=== PATIENT | female | born 1975 | race Caucasian/White ===

== ENCOUNTER 2017-10-12 18:29 | Emergency (ER) | payer SELFPAY ==
[2017-10-12] MEDS ORDERED: Ondansetron 4 MG/2 ML SDV IVPUSH ONE (18:58)
[2017-10-12] MEDS ORDERED: Sodium Chloride 0.9% 1,000 ML IV ONE (18:58)
[2017-10-12] MEDS ORDERED: Vancomycin 1 GM SDV ONE ×3 (19:40→22:20)
[2017-10-12] MEDS ORDERED: Levofloxacin/Dextrose 5%-Water 150 ML IV ONE (20:14)
[2017-10-12] MEDS ORDERED: Ketorolac 30 MG/ML SDV ONE ×2 (20:28→22:20)
[2017-10-12] MEDS ORDERED: Sodium Chloride 0.9% with KCl 1,000 ML ONE (20:52)
[2017-10-12] MEDS ORDERED: methylPREDNISolone Sodium Succinate 125 MG/2 ML SDV ONE (21:17)
[2017-10-12] MEDS ORDERED: LEVOFLOXACIN IV ONE (22:20)
[2017-10-12] MEDS ORDERED: Acetaminophen 650 MG Supp ONE (22:20)
[2017-10-12] MEDS ORDERED: KCL ONE (22:20)
[2017-10-12] MEDS ORDERED: DEXTROSE IV ONE (22:20)
[2017-10-12] MEDS ORDERED: SODIUM CHLORIDE ONE (22:20)
[2017-10-12] MEDS ORDERED: WATER IV ONE (22:20)
[2017-10-12] MEDS ORDERED: Rocuronium 50 MG/5 ML Vial ONE (22:20)
[2017-10-12] MEDS ORDERED: Ondansetron 4 MG/2 ML SDV ONE (22:20)
[2017-10-12] MEDS ORDERED: Norepinephrine 4 MG/4 ML SDV ONE (22:20)
[2017-10-12] MEDS ORDERED: Ketamine 200 MG/20 ML MDV ONE (22:20)
--- NOTE | 2017-10-13 | ER ---
HISTORY OF PRESENT ILLNESS: A 42-year-old lady who comes in with her with complaints of being sick for the last four days. She had cough and cold symptoms, and tells this mid afternoon today, she suddenly started having a deep harsh cough, she started vomiting, which she did several times. She has now become lethargic and extremely fatigued. The patient's tells me that they just got back from a vacation in [place] yesterday, and she was having cough and cold symptoms for a couple of days before they came home. The patient has otherwise been in good health. She is not on any current medications. OBJECTIVE: GENERAL APPEARANCE: The patient is resting quietly with her eyes closed. She does respond to verbal stimuli. Theresa coma Scale is 13. She is in mild respiratory distress. She states that she has been coughing up some karla blood as well. VITAL SIGNS: Reviewed. Initial blood pressure 90/52, temp is 102, pulse is been in the 115 to 120 range. LUNGS: The patient does have rales bilaterally. When listening to her lungs, I do not hear any wheezing. CARDIAC: Heart sounds distinct without murmurs. SKIN: Warm and dry. ABDOMEN: Soft and nontender. HEENT: Oral mucous membranes are dry. LABORATORY AND X-RAY DATA: Labs ordered include CBC with a white count of 0.9. Comprehensive metabolic panel shows a potassium of 3.0, creatinine 2.09, lactic acid is 8.86. D-dimer is greater than 5000. INITIAL TREATMENT: 1 L of fluid was started as a bolus. At this point, I consulted with the [place] physician, Dr. Steinberg, who instructed a total of 3 L be given in bolus form and due to the lactic acid coming back elevated at 8.86, Zosyn and vancomycin were started as well as Levaquin shortly after. The CT of the chest and abdomen were also obtained. The results show a large diffuse pneumonia. The patient has a spit up frothy blood several different times in the emergency room. Her O2 sats on oxygen maintained in the low 90s. She was switched to a BiPAP which did help her breathing and her sats were in the upper 90s at this point. Arrangements were made to transfer her to [facility] in [place]. We are currently waiting for [facility] to arrive. The patient also did have a Silva put in, and she is resting more comfortably at this time with her eyes open most of the time. DIAGNOSES: 1. Pneumonia. 2. Influenza B. 3. Severe dehydration. CRS/MODL /[id number]
--- NOTE | 2017-10-13 00:15 | EDM.PDOC ---
ED HPI GENERAL MEDICAL PROBLEM - General Chief Complaint: General Stated Complaint: sick Time Seen by Provider: 10/12/17 21:58 Source of Information: Reports: EMS, Family, Provider History Limitations: Reports: Other (sedated) - History of Present Illness INITIAL COMMENTS - FREE TEXT/NARRATIVE: I arrived in the ER at 2158 with staff, nursing, family and flight crew presently starting intubation. Patient was already sedated and paralyzed. Levophed was already started with already 2+ Liters of NS given and BP still remained low. Flight crew suctioning oropharynx with copious amounts of blood suctioned. Intubation was successful and breath sounds good B/L with capnography and CO2 monitoring. Airway secured and I continued BMV while flight crew prepped for transfer. Patient stable throughout the time I was present with improving BP but continued tachy. Pulse ox remained stable 95-98. Discussion with family reveal no currrent medication history but did start taking motrin 3-4 tabs q4 since . 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 Patient has been feeling sick for a few weeks. ED ROS GENERAL - Review of Systems Review Of Systems: ROS reveals no pertinent complaints other than HPI. ED EXAM, GENERAL - Physical Exam Exam: See Below General Appearance: Other (sedated) Respiratory/Chest: Crackles, Rales, Other (intubation done) Cardiovascular: Tachycardia Peripheral Pulses: 1+: Dorsalis Pedis (L), Dorsalis Pedis (R) Course - Orders/Labs/Meds Orders: Active Orders 24 hr Category Date Time Status Chest Abdomen Pelvis wo Cont [CT] Stat Exams 10/12/17 18:53 Taken CULTURE BLOOD [BC] Stat Lab 10/12/17 20:00 Received Labs: Laboratory Tests 10/12/17 10/12/17 10/12/17 Range/Units 18:56 18:56 19:03 WBC 0.9 L* (4.0-11.0) K/uL RBC 4.66 (3.80-5.80) M/uL Hgb 14.2 (11.5-16.5) g/dL Hct 40.5 (37.0-47.0) % MCV 87 (76-96) fL MCH 30.5 (27.0-32.0) pg MCHC 35.1 H (31.0-35.0) g/dL RDW 12.0 (11.0-16.0) % Plt Count 160 (150-500) K/uL MPV 11.2 H (6.0-10.0) fL Neut % (Auto) 53.3 (45.0-70.0) % Lymph % (Auto) 40.2 H (20.0-40.0) % [place] % (Auto) 5.4 (3.0-10.0) % Eos % (Auto) 1.1 (1.0-5.0) % Baso % (Auto) 0.0 (0.0-0.5) % Neut # (Auto) 0.49 L (2.00-7.50) K/uL Lymph # (Auto) 0.37 L (1.50-4.00) K/uL [place] # (Auto) 0.05 L (0.20-0.80) K/uL Eos # (Auto) 0.01 L (0.04-0.40) K/uL Baso # (Auto) 0.00 L (0.02-0.10) K/uL D-Dimer, Quantitative (0-400) ng/mL Sodium 142 (136-145) mmol/L Potassium 3.0 L (3.5-5.1) mmol/L Chloride 102 (98-107) mmol/L Carbon Dioxide 21.8 (21.0-32.0) mmol/L Anion Gap 21.2 H (5.0-15.0) mmol/L BUN 14 (8-26) mg/dL Creatinine 2.09 H (0.55-1.02) mg/dL Est Cr Clr Drug Dosing TNP Estimated GFR (MDRD) 26 L (>60) MLS/MIN BUN/Creatinine Ratio 6.7 (6-25) Glucose 168 H (74-100) mg/dL Lactic Acid 8.86 H (0.90-1.70) mmol/L Calcium 8.0 L (8.5-10.1) mg/dL Total Bilirubin 0.8 (0.0-1.0) mg/dL AST 40 H (15-37) U/L ALT 38 (12-78) U/L Alkaline Phosphatase 56 (46-116) U/L Total Protein 6.3 L (6.4-8.2) g/dL Albumin 3.3 L (3.4-5.0) g/dL Globulin 3.0 (2.2-4.2) g/dL Albumin/Globulin Ratio 1.1 (0.8-2.0) 10/12/17 Range/Units 19:06 WBC (4.0-11.0) K/uL RBC (3.80-5.80) M/uL Hgb (11.5-16.5) g/dL Hct (37.0-47.0) % MCV (76-96) fL MCH (27.0-32.0) pg MCHC (31.0-35.0) g/dL RDW (11.0-16.0) % Plt Count (150-500) K/uL MPV (6.0-10.0) fL Neut % (Auto) (45.0-70.0) % Lymph % (Auto) (20.0-40.0) % [place] % (Auto) (3.0-10.0) % Eos % (Auto) (1.0-5.0) % Baso % (Auto) (0.0-0.5) % Neut # (Auto) (2.00-7.50) K/uL Lymph # (Auto) (1.50-4.00) K/uL [place] # (Auto) (0.20-0.80) K/uL Eos # (Auto) (0.04-0.40) K/uL Baso # (Auto) (0.02-0.10) K/uL D-Dimer, Quantitative > 5000 H (0-400) ng/mL Sodium (136-145) mmol/L Potassium (3.5-5.1) mmol/L Chloride (98-107) mmol/L Carbon Dioxide (21.0-32.0) mmol/L Anion Gap (5.0-15.0) mmol/L BUN (8-26) mg/dL Creatinine (0.55-1.02) mg/dL Est Cr Clr Drug Dosing Estimated GFR (MDRD) (>60) MLS/MIN BUN/Creatinine Ratio (6-25) Glucose (74-100) mg/dL Lactic Acid (0.90-1.70) mmol/L Calcium (8.5-10.1) mg/dL Total Bilirubin (0.0-1.0) mg/dL AST (15-37) U/L ALT (12-78) U/L Alkaline Phosphatase (46-116) U/L Total Protein (6.4-8.2) g/dL Albumin (3.4-5.0) g/dL Globulin (2.2-4.2) g/dL Albumin/Globulin Ratio (0.8-2.0) Meds: Medications Discontinued Medications Generic Name Dose Route Start Last Admin Trade Name Freq PRN Reason Stop Dose Admin Sodium Chloride 1,000 mls @ 1,000 mls/hr 10/12/17 18:58 Normal Saline IV 10/12/17 19:57 .BOLUS ONE Levofloxacin/Dextrose Confirm 10/12/17 20:14 Levaquin In D5w 750 Mg/150 Ml Administered 10/12/17 20:15 Dose 150 mls @ as directed IV .STK-MED ONE Potassium Chloride/Sodium Chloride Confirm 10/12/17 20:52 Normal Saline With 40 Meq Kcl Administered 10/12/17 20:53 Dose 1,000 mls @ as directed .ROUTE .STK-MED ONE Ketorolac Tromethamine Confirm 10/12/17 20:28 Toradol Administered 10/12/17 20:29 Dose 30 mg .ROUTE .STK-MED ONE Methylprednisolone Sodium Succinate Confirm 10/12/17 21:17 Solu-Medrol Administered 10/12/17 21:18 Dose 125 mg .ROUTE .STK-MED ONE Ondansetron HCl 4 mg 10/12/17 18:58 Zofran IVPUSH 10/12/17 18:59 ONETIME ONE Vancomycin HCl Confirm 10/12/17 19:40 Vancomycin Administered 10/12/17 19:41 Dose 1 gm .ROUTE .STK-MED ONE Vancomycin HCl Confirm 10/12/17 19:41 Vancomycin Administered 10/12/17 19:42 Dose 1 gm .ROUTE .STK-MED ONE Departure - Departure Time of Disposition: 22:30 Disposition: DC/Tfer to Acute Hospital 02 Condition: Critical Clinical Impression: Hypokalemia, Pneumonia, SIRS (systemic inflammatory response syndrome), Influenza B Sepsis Qualifiers: Sepsis type: sepsis due to unspecified organism Qualified Code(s): A41.9 - Sepsis, unspecified organism Hematemesis Qualifiers: Nausea presence: unspecified Qualified Code(s): K92.0 - Hematemesis - Discharge Information Referrals: PCP,None [Primary Care Provider] - - Problem List Review Problem List Initiated/Reviewed/Updated: Yes - Assessment/Plan Plan: Patient transfer already done by Luis Enrique Dey to [facility] ER. Patient stable and transferred to flight crew care.
--- NOTE | 2017-10-13 14:55 | CT ---
DATE OF SERVICE: 10/12/17 CLINICAL DATA: hematemesis - lethargic. UNENHANCED CHEST CT: Multi slice acquisition through the chest without IV contrast was performed. No priors. There are extensive poorly defined opacities throughout the right upper, right lower, and right middle lobes as well as throughout the left lower lobe with areas of coalescence and consolidation bilaterally, right greater than left. Multi focal pneumonia is suspected. TB and fungal infections and atypical pneumonia should be considered. An immunocompromised patient should also be considered. No significant pleural effusion. No pneumothorax. The heart size is normal. No significant pericardial effusion. No hilar or mediastinal adenopathy. There is a small hiatal hernia. IMPRESSION: Abnormal exam. See above. See above differential. The patient's physician was notified of the findings by [facility] preliminary radiology report. UNENHANCED ABDOMEN AND PELVIC CT: Multislice acquisition through the abdomen and pelvis without IV or oral contrast was performed. No priors. Both lungs are abnormal. See chest CT dictation. There is a small hiatal hernia. The unenhanced liver appears normal. The gallbladder appears normal. The spleen appears normal. The pancreas appears normal. The right and left adrenals appear normal. The right and left kidneys appear normal. No nephrocalcinosis or nephrolithiasis. No hydronephrosis or hydroureter. No evidence of appendicitis. The appendix is not dilated. No free air. No free fluid. No dilated loops of bowel. No adenopathy. No aortic aneurysm or dissection. IMPRESSION: Abnormal lungs. See chest CT dictation. No acute abnormalities within the abdomen and pelvis. [id number] [facility]
== END 2017-10-12 22:30 ==
LOC: LB.ED 18:29
DX: A41.9 Sepsis, unspecified organism (principal); J18.9 Pneumonia, unspecified organism; K92.0 Hematemesis; J10.1 Influenza due to other identified influenza virus with other respiratory manifestations
CPT/HCPCS: 31500; 36415; 71250; 74176; 80053; 83605; 85025; 85379; 87015; 87040; 87070; 87102; 87116; 87186; 87205; 87206; 87804; 96361; 96374; 99291-25; A0425; A0429; A9270-GY; J1885; J1956; J2405; J2543; J3370; J3480; J7040